=== PATIENT | female | born 1955 | race Caucasian/White ===

== ENCOUNTER 2016-12-06 08:52 | Outpatient (CLI) | payer OTHER | END 2016-12-06 08:53 | disposition home or self-care (01) | DX: E11.9 Type 2 diabetes mellitus without complications (principal); I25.10 Atherosclerotic heart disease of native coronary artery without angina pectoris; E78.9 Disorder of lipoprotein metabolism, unspecified ==

== ENCOUNTER 2017-04-14 10:40 | Outpatient (CLI) | payer OTHER ==
[2017-04-14 19:41] LABS: HEMOGLOBIN A1C 1.18 g/dL
[2017-04-14 19:46] LABS: ALBUMIN/GLOBULIN RATIO 1.2 (1.0-2.2); BILIRUBIN,TOTAL 0.4 mg/dL (0.2-1.0); CALCIUM 9.2 mg/dL (8.5-10.3); CREATININE 0.8 mg/dL (0.4-1.0); POTASSIUM 4.3 mmol/L (3.5-5.0); TOTAL PROTEIN 6.8 g/dL (6.7-8.2)
== END 2017-04-14 10:41 | disposition home or self-care (01) ==
LOC: LAB.WCP 10:40
PROVIDERS: ATTEND Family Medicine
DX: E11.9 Type 2 diabetes mellitus without complications (principal)
CPT/HCPCS: 36415; 80053; 83036

== ENCOUNTER 2017-07-31 08:17 | Outpatient (CLI) | payer OTHER ==
[2017-07-31 19:59] LABS: HEMOGLOBIN A1C 1.04 g/dL
[2017-07-31 20:20] LABS: ALBUMIN/GLOBULIN RATIO 1.2 (1.0-2.2); BILIRUBIN,TOTAL 0.2 mg/dL (0.2-1.0); CREATININE 0.8 mg/dL (0.4-1.0); POTASSIUM 4.4 mmol/L (3.5-5.0); TOTAL PROTEIN 6.9 g/dL (6.7-8.2)
== END 2017-07-31 08:18 | disposition home or self-care (01) ==
LOC: LAB.WCP 08:17
PROVIDERS: ATTEND Family Medicine
DX: E11.51 Type 2 diabetes mellitus with diabetic peripheral angiopathy without gangrene (principal); I25.10 Atherosclerotic heart disease of native coronary artery without angina pectoris; F43.21 Adjustment disorder with depressed mood
CPT/HCPCS: 36415; 80053; 83036

== ENCOUNTER 2017-11-07 08:00 | Outpatient (CLI) | payer OTHER ==
[2017-11-07 19:06] LABS: BASOPHILS # (AUTO) 0.1 10^3/uL (0.0-0.1); BASOPHILS % (AUTO) 0.8 %; EOSINOPHILS # (AUTO) 0.1 10^3/uL (0.0-0.7); EOSINOPHILS % (AUTO) 1.9 %; HGB - HEMOGLOBIN 15.2 g/dL (12.0-16.0); LYMPHOCYTES # (AUTO) 2.9 10^3/uL (1.5-3.5); LYMPHOCYTES % (AUTO) 41.4 %; MEAN CORPUSCULAR HEMOGLOBIN 30.3 pg (27.0-31.0); MEAN CORPUSCULAR HGB CONC 32.3 g/dL (32.0-36.0); MEAN CORPUSCULAR VOLUME 93.6 fL (81.0-99.0); MONOCYTES # (AUTO) 0.6 10^3/uL (0.0-1.0); MONOCYTES % (AUTO) 8.4 %; NEUTROPHILS # (AUTO) 3.3 10^3/uL (1.5-6.6); NEUTROPHILS % (AUTO) 47.5 %; PLT - PLATELET COUNT 226 10^3/uL (130-450); RED BLOOD COUNT 5.03 10^6/uL (4.20-5.40); RED CELL DISTRIBUTION WIDTH 14.2 % (12.0-15.0)
[2017-11-07 19:25] LABS: ALBUMIN/GLOBULIN RATIO 1.3 (1.0-2.2); ALKALINE PHOSPHATASE 63 IU/L (42-121); ALT ALANINE AMINOTRANSFERASE 22 IU/L (10-60); AST ASPARTATE AMINOTRANSFERASE 27 IU/L (10-42); BILIRUBIN,TOTAL 0.3 mg/dL (0.2-1.0); BUN - BLOOD UREA NITROGEN 10 mg/dL (6-20); CALCIUM 8.9 mg/dL (8.5-10.3); CARBON DIOXIDE - CO2 28 mmol/L (21-32); CHLORIDE 102 mmol/L (101-111); CHOL/HDL RATIO 3.8 (<4.4); CHOLESTEROL 135 mg/dL; CREATININE 0.7 mg/dL (0.4-1.0); GFR - MDRD 85 (>89); GLUCOSE 88 mg/dL (70-100); HDL CHOLESTEROL 36 mg/dL; LDL CHOLESTEROL,CALCULATED 74 mg/dL; LDL/HDL RATIO 2.1 (<4.4); SODIUM 139 mmol/L (135-145); TOTAL PROTEIN 7.1 g/dL (6.7-8.2); VLDL CHOLESTEROL 25 mg/dL
[2017-11-07 20:13] LABS: HB2 TOTAL 16.7 g/dL; HEMOGLOBIN A1C 0.94 g/dL; HEMOGLOBIN A1C % 7.3 % (4.6-6.2)
== END 2017-11-07 08:01 | disposition home or self-care (01) ==
LOC: LAB.WCP 08:00
PROVIDERS: ATTEND Family Medicine
DX: E11.9 Type 2 diabetes mellitus without complications (principal); I25.10 Atherosclerotic heart disease of native coronary artery without angina pectoris; I10 Essential (primary) hypertension
CPT/HCPCS: 36415; 80053; 80061; 83036; 83721; 84443; 85025

== ENCOUNTER 2018-04-30 06:05 | Day surgery (SDC) | payer OTHER ==
[2018-04-30] MEDS ORDERED: LACTATED RINGERS 1,000 ML IV ONE ×2 (06:26)
[2018-04-30] MEDS ORDERED: LIDO GARGLE 30 ML BOTTLE ONE (06:49)
[2018-04-30] MEDS ORDERED: fentaNYL 100 MCG/2 ML VIAL IVP ONE (07:35)
[2018-04-30] MEDS ORDERED: MIDAZOLAM 2 MG/2 ML VIAL IVP ONE (07:35)
[2018-04-30] MEDS ORDERED: LIDO GARGLE 30 ML BOTTLE PO ONE (07:47)
[2018-04-30 09:16] VITALS: BP 113/79
== END 2018-04-30 06:06 | disposition home or self-care (01) ==
LOC: SDS 06:05
PROVIDERS: ATTEND Internal Medicine Gastroenterology
PROC: 0DB68ZX Excision of Stomach, Via Natural or Artificial Opening Endoscopic, Diagnostic (ICD-10-PCS; 2018-04-30)
PROC: 0DB48ZX Excision of Esophagogastric Junction, Via Natural or Artificial Opening Endoscopic, Diagnostic (ICD-10-PCS; principal; 2018-04-30 07:30)
DX: K21.9 Gastro-esophageal reflux disease without esophagitis (principal); K31.9 Disease of stomach and duodenum, unspecified; E11.9 Type 2 diabetes mellitus without complications; I25.10 Atherosclerotic heart disease of native coronary artery without angina pectoris; Z86.718 Personal history of other venous thrombosis and embolism; E78.00 Pure hypercholesterolemia, unspecified; Z79.82 Long term (current) use of aspirin; Z79.84 Long term (current) use of oral hypoglycemic drugs
CPT/HCPCS: 43239; 43254; 87081; A9270; J7120

== ENCOUNTER 2018-10-01 08:00 | Outpatient (CLI) | payer OTHER ==
[2018-10-01 12:57] LABS: ALBUMIN 3.6 g/dL (3.2-5.5); ALBUMIN/GLOBULIN RATIO 1.1 (1.0-2.2); BILIRUBIN,TOTAL 0.3 mg/dL (0.2-1.0); CALCIUM 9.4 mg/dL (8.5-10.3); CREATININE 0.8 mg/dL (0.4-1.0); TOTAL PROTEIN 6.8 g/dL (6.7-8.2)
[2018-10-01 13:11] LABS: HB2 TOTAL 15.3 g/dL; HEMOGLOBIN A1C 0.84 g/dL; HEMOGLOBIN A1C % 7.2 % (4.6-6.2)
== END 2018-10-01 23:59 | disposition home or self-care (01) ==
LOC: LAB.WCP 08:00
PROVIDERS: ATTEND Family Medicine
DX: K21.9 Gastro-esophageal reflux disease without esophagitis (principal); E11.51 Type 2 diabetes mellitus with diabetic peripheral angiopathy without gangrene; I42.1 Obstructive hypertrophic cardiomyopathy
CPT/HCPCS: 36415; 80053; 82043; 83036

== ENCOUNTER 2019-03-11 15:32 | Outpatient (CLI) | payer OTHER ==
--- NOTE | 2019-03-12 22:55 | XRAY Report ---
Reason: HIP PAIN RIGH,DISPLACED FRACTURE OF LATERAL MALLEO Procedure Date: 03/11/2019 Accession Number: [id number] / [id number] Procedure: XR - Hip w/Pelvis 2-3V RT CPT Code: FULL RESULT: EXAM: RIGHT HIP RADIOGRAPHY EXAM DATE: 03/11/2019 04:11 PM. CLINICAL HISTORY: HIP PAIN RIGH,DISPLACED FRACTURE OF LATERAL MALLEO. COMPARISON: None. TECHNIQUE: 2 views. FINDINGS: Bones: No acute displaced fractures. Old fracture of the left inferior pubic ramus. Joints: Mild to moderate osteoarthritis. No dislocation. The hip joint space is preserved. Soft Tissues: Multiple pelvic calcifications most likely reflect phleboliths. IMPRESSION: No acute radiographic abnormalities. [facility]
--- NOTE | 2019-03-12 22:56 | XRAY Report ---
Reason: HIP PAIN RIGH,DISPLACED FRACTURE OF LATERAL MALLEO Procedure Date: 03/11/2019 Accession Number: [id number] / [id number] Procedure: XR - Ankle 3 View RT CPT Code: FULL RESULT: EXAM: RIGHT ANKLE RADIOGRAPHY EXAM DATE: 03/11/2019 04:11 PM. CLINICAL HISTORY: HIP PAIN RIGH,DISPLACED FRACTURE OF LATERAL MALLEO. COMPARISON: None. TECHNIQUE: 3 views. FINDINGS: Bones: Mild transverse sclerosis of the distal fibula at the level of the tibiotalar joint, best seen on the oblique view. Small plantar calcaneal spur. Joints: Ankle mortise is preserved. No subluxations. Soft Tissues: Unremarkable IMPRESSION: Mild transverse sclerosis of the distal fibula at the level of the tibiotalar joint could reflect a healing fracture or stress fracture. Otherwise, no acute fractures seen. [facility]
== END 2019-03-11 15:33 | disposition home or self-care (01) ==
LOC: DI 15:32
PROVIDERS: ATTEND Family Medicine
DX: M16.11 Unilateral primary osteoarthritis, right hip (principal); S82.61XA Displaced fracture of lateral malleolus of right fibula, initial encounter for closed fracture

== ENCOUNTER 2019-04-15 08:37 | Outpatient (CLI) | payer OTHER ==
--- NOTE | 2019-04-15 13:13 | XRAY Report ---
Reason: DISPLACED FRACTURE OF LATERAL MALLEOLUS Procedure Date: 04/15/2019 Accession Number: [id number] / [id number] Procedure: WCP - Ankle 3 View RT CPT Code: FULL RESULT: EXAM: RIGHT ANKLE RADIOGRAPHY EXAM DATE: 04/15/2019 09:08 AM. CLINICAL HISTORY: Displaced fracture of lateral malleolus. COMPARISON: ANKLE 3 VIEW RT 03/11/2019 3:52 PM. TECHNIQUE: 3 views. FINDINGS: Bones: No displaced or definite fracture. Previously noted sclerosis at the medial margin of the distal fibula at the level of the plafond is without significant change and of indeterminate significance. Healed/healing fracture not excluded. Small calcaneal spur is redemonstrated. Joints: Normal. No effusion. No subluxations. The ankle mortise is normally aligned. Soft Tissues: Normal. No soft tissue swelling. IMPRESSION: 1. No acute abnormality demonstrated. 2. No displaced or definite fracture demonstrated. Stable appearance of the previously noted focal sclerosis of the distal fibula for which a healing or healed nondisplaced fracture is not excluded. [facility]
== END 2019-04-15 23:59 | disposition home or self-care (01) ==
LOC: DI.WCP 08:37 → EDSTATUS 13:10 → DI.WCP 23:59
PROVIDERS: ATTEND Family Medicine
DX: S82.63XA Displaced fracture of lateral malleolus of unspecified fibula, initial encounter for closed fracture (principal)

== ENCOUNTER 2019-10-01 12:05 | Outpatient (CLI) | payer MEDICARE, OTHER ==
[2019-10-01 18:59] LABS: CREATININE,URINE 170.7 mg/dL; MICROALBUM/CREATININE RATIO,UR 152.9 ug/mg (<30.0); MICROALBUMIN,URINE 26.1 mg/dL (0-300.0)
[2019-10-01 19:09] LABS: CALCIUM 9.2 mg/dL (8.5-10.3); CREATININE 0.7 mg/dL (0.4-1.0)
[2019-10-01 19:43] LABS: HB2 TOTAL 15.5 g/dL; HEMOGLOBIN A1C 1.18 g/dL; HEMOGLOBIN A1C % 9.1 % (4.6-6.2)
== END 2019-10-01 23:59 | disposition home or self-care (01) ==
LOC: LAB.WCP 12:05
PROVIDERS: ATTEND Family Medicine
DX: I25.10 Atherosclerotic heart disease of native coronary artery without angina pectoris (principal); I42.1 Obstructive hypertrophic cardiomyopathy; E11.59 Type 2 diabetes mellitus with other circulatory complications
CPT/HCPCS: 36415; 80048; 82043; 82570; 83036

== ENCOUNTER 2019-11-26 08:00 | Outpatient (CLI) | payer MEDICARE, OTHER ==
[2019-11-26 12:08] LABS: ALBUMIN 3.5 g/dL (3.2-5.5); ALBUMIN/GLOBULIN RATIO 0.9 (1.0-2.2); ALKALINE PHOSPHATASE 69 IU/L (42-121); ALT ALANINE AMINOTRANSFERASE 23 IU/L (10-60); AST ASPARTATE AMINOTRANSFERASE 29 IU/L (10-42); BILIRUBIN,TOTAL 0.8 mg/dL (0.2-1.0); BUN - BLOOD UREA NITROGEN 11 mg/dL (6-20); CARBON DIOXIDE - CO2 28 mmol/L (21-32); CHLORIDE 102 mmol/L (101-111); CHOL/HDL RATIO 3.7 (<4.4); CHOLESTEROL 111 mg/dL; CREATININE 0.7 mg/dL (0.4-1.0); GLUCOSE 135 mg/dL (70-100); HDL CHOLESTEROL 30 mg/dL; LDL CHOLESTEROL,CALCULATED 52 mg/dL; LDL/HDL RATIO 1.7 (<4.4); SODIUM 141 mmol/L (135-145); TOTAL PROTEIN 7.2 g/dL (6.7-8.2); VLDL CHOLESTEROL 29 mg/dL
[2019-11-26 12:17] LABS: MICROALBUM/CREATININE RATIO,UR 61.7 ug/mg (<30.0); MICROALBUMIN,URINE 19.5 mg/dL (0-300.0)
[2019-11-26 14:45] LABS: HB2 TOTAL 15.1 g/dL; HEMOGLOBIN A1C 0.76 g/dL; HEMOGLOBIN A1C % 6.8 % (4.6-6.2)
== END 2019-11-26 23:59 | disposition home or self-care (01) ==
LOC: LAB.WCP 08:00
PROVIDERS: ATTEND Family Medicine
DX: E11.59 Type 2 diabetes mellitus with other circulatory complications (principal); I10 Essential (primary) hypertension; I25.10 Atherosclerotic heart disease of native coronary artery without angina pectoris; E78.5 Hyperlipidemia, unspecified
CPT/HCPCS: 36415; 80053; 80061; 82043; 82570; 83036; 83721

== ENCOUNTER 2019-12-07 08:00 | Outpatient (CLI) | payer MEDICARE, OTHER | END 2019-12-07 23:59 | disposition home or self-care (01) | LOC: LAB.R 08:00 | PROVIDERS: ATTEND Family Medicine | DX: R19.7 Diarrhea, unspecified (principal) | CPT/HCPCS: 81599; 83630; 87045; 87046; 87329; 87493 ==

== ENCOUNTER 2020-04-17 14:34 | Outpatient (CLI) | payer OTHER, MEDICARE ==
[2020-04-17 18:29] LABS: BASOPHILS # (AUTO) 0.1 10^3/uL (0.0-0.1); BASOPHILS % (AUTO) 0.6 %; EOSINOPHILS # (AUTO) 0.4 10^3/uL (0.0-0.7); EOSINOPHILS % (AUTO) 4.6 %; HGB - HEMOGLOBIN 15.3 g/dL (12.0-16.0); LYMPHOCYTES % (AUTO) 31.7 %; MEAN CORPUSCULAR HEMOGLOBIN 30.4 pg (27.0-31.0); MEAN CORPUSCULAR HGB CONC 32.3 g/dL (32.0-36.0); MONOCYTES # (AUTO) 0.7 10^3/uL (0.0-1.0); MONOCYTES % (AUTO) 7.4 %; NEUTROPHILS # (AUTO) 5.2 10^3/uL (1.5-6.6); NEUTROPHILS % (AUTO) 55.5 %; PLT - PLATELET COUNT 231 10^3/uL (130-450); RED BLOOD COUNT 5.04 10^6/uL (4.20-5.40); RED CELL DISTRIBUTION WIDTH 13.2 % (12.0-15.0); WHITE BLOOD COUNT 9.4 x10^3/uL (4.8-10.8)
[2020-04-17 19:10] LABS: HB2 TOTAL 16.4 g/dL; HEMOGLOBIN A1C 0.82 g/dL; HEMOGLOBIN A1C % 6.7 % (4.6-6.2)
== END 2020-04-17 23:59 | disposition home or self-care (01) ==
LOC: LAB.WCP 14:34
PROVIDERS: ATTEND Podiatrist
DX: Z01.812 Encounter for preprocedural laboratory examination (principal); R73.9 Hyperglycemia, unspecified
CPT/HCPCS: 36415; 82947; 83036; 85025